=== PATIENT | male | born 1970 | race Caucasian/White ===

== ENCOUNTER → 2017-08-24 | Outpatient (CLI) | payer OTHER ==
[~2017-08-24] MED LIST: IOPAMIDOL (ISOVUE-300) 100 ML BTL ONE
== END ==
LOC: CIMAGING 08:16
PROVIDERS: ATTEND Internal Medicine
DX: R68.89 Other general symptoms and signs (principal); I10 Essential (primary) hypertension
CPT/HCPCS: 74160-PO; Q9967